=== PATIENT | male | born 1950 | race Asian ===

== ENCOUNTER 2018-10-30 18:32 | Inpatient (IN) | payer MEDICARE ==
[2018-10-30 19:24] LABS: % EOSINOPHILS 3.8 % (0.0-5.0); % LYMPHOCYTES 13.6 % (20.0-50.0); % MONOCYTES 10.4 % (2.0-10.0); % NEUTROPHILS 72.2 % (40.0-80.0); EOSINOPHILE ABSOLUTE 0.2 Th/cmm (0.1-0.4); HEMATOCRIT 42.5 % (41.0-60); HEMOGLOBIN 13.8 gm/dL (12-16); LYMPHOCYTE ABSOLUTE 0.8 Th/cmm (1.5-3.0); MEAN CELL VOLUME 92.6 fl (80-99); MEAN CORPUSCULAR HGB CONC 32.4 pg (28.0-36.0); MONOCYTE ABSOLUTE 0.6 Th/cmm (0.3-1.0); NEUTROPHILE ABSOLUTE 4.4 Th/cmm (1.8-8.0); PLATELET COUNT 252 Th/cmm (150-400); RED BLOOD COUNT 4.59 Mil/cmm (3.80-5.80); RED CELL DISTRIBUTION WIDTH 12.2 % (11.5-20.0)
[2018-10-30 19:34] LABS: INR 1.02 (0.5-1.4)
[2018-10-30 19:55] LABS: ALB/GLOB RATIO 1.4 (1.0-1.8); ALBUMIN 3.8 gm/dL (4.2-5.5); ALKALINE PHOSPHATASE 62 U/L (34-104); ANION GAP 12.7 (7.0-16.0); BILIRUBIN,TOTAL 0.6 mg/dL (0.3-1.0); BUN - UREA NITROGEN 14 mg/dL (7-25); CALCIUM SERUM 8.9 mg/dL (8.6-10.3); CARBON DIOXIDE 24.9 mEq/L (21.0-31.0); CHLORIDE 101 mEq/L (98-107); CREATININE - SERUM 0.8 mg/dL (0.7-1.3); GFR AFRICAN-AMERICAN > 60.0 ml/min (>90); GFR NON AFRICAN-AMERICAN > 60.0 ml/min; GLUCOSE 218 mg/dL (70-105); POTASSIUM SERUM 3.6 mEq/L (3.5-5.1); SGOT 27 U/L (13-39); SGPT/ALT 25 U/L (7-52); SODIUM SERUM 135 mEq/L (136-145); TOTAL PROTEIN,SERUM 6.5 gm/dL (6.0-8.3)
--- NOTE | 2018-10-30 23:40 | ED Physician Chart ---
ED Chief Complaint/HPI - Patient Information Date Seen:: 10/30/18 Time Seen:: 18:50 Chief Complaint:: weakness History of Present Illness:: 68 yrold male from [facility] [place] with hx of stoke last september with improved residuals who was bib family for weakness and depression with hx of slash lt volar wrist pt denies weakness or numbness no slurring of speech no dysphagia Allergies:: Allergies Allergy/AdvReac Type Severity Reaction Status Date / Time No Known Allergies Allergy Verified 10/30/18 18:42 Vitals:: Vital Signs - 8 hr 10/30/18 10/30/18 18:42 19:15 Temp 97.8 F 98.7 F HR 82 75 RR 16 16 BP 144/81 121/70 O2 Sat % 96 97 ED Review of Systems - Review of Systems General/Constitutional: No fever Skin: Other (has stitches volar lt wrist has 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) Head: No headache ENT: No earache Neck: No neck pain Cardio Vascular: No chest pain Pulmonary: No SOB GI: No vomiting G/U: No dysuria Psychiatric: Depression Hematopoietic: Bruising Allergic/Immuno: No urticaria Neurological: No syncope ED Past Medical History - Past Medical History Past Medical History: HTN, CVA/TIA Family Medical History - Family Member Father History Unknown: Yes Living Status: ED Physical Exam - Physical Examination General/Constitutional: Well-developed, well-nourished Head: Atraumatic Eyes: Lids, conjuctiva normal Other Skin comments:: lt wrist stiches in place with dry blood and rt hand digit amputations deformity ENMT: External ears, nose nl Neck: Nontender Respiratory: Nl effort/Exclusion Cardio Vascular: RRR GI: No tenderness/rebounding/guarding Extremities: No tenderness or effusion Neuro/Psych: Alert/oriented Misc: Normal back ED Labs/Radiology/EKG Results - Lab Results Results: Laboratory Tests 10/30/18 10/30/18 10/30/18 19:02 19:15 19:15 WBC 6.0 RBC 4.59 Hgb 13.8 Hct 42.5 MCV 92.6 MCH 30.0 MCHC Differential 32.4 RDW 12.2 Plt Count 252 MPV 6.8 Neutrophils % 72.2 Lymphocytes % 13.6 L Monocytes % 10.4 H Eosinophils % 3.8 Basophils % 0.0 PT INR PTT (Actin FS) Sodium 135 L Potassium 3.6 Chloride 101 Carbon Dioxide 24.9 Anion Gap 12.7 BUN 14 Creatinine 0.8 Est GFR ( Amer) > 60.0 Est GFR (Non-Af Amer) > 60.0 BUN/Creatinine Ratio 17.5 Glucose 218 H POC Glucose 203 H Calcium 8.9 Total Bilirubin 0.6 AST 27 ALT 25 Alkaline Phosphatase 62 Troponin I Total Protein 6.5 Albumin 3.8 L Globulin 2.7 Albumin/Globulin Ratio 1.4 10/30/18 10/30/18 19:15 19:15 WBC RBC Hgb Hct MCV MCH MCHC Differential RDW Plt Count MPV Neutrophils % Lymphocytes % Monocytes % Eosinophils % Basophils % PT 10.6 INR 1.02 PTT (Actin FS) 28.7 Sodium Potassium Chloride Carbon Dioxide Anion Gap BUN Creatinine Est GFR ( Amer) Est GFR (Non-Af Amer) BUN/Creatinine Ratio Glucose POC Glucose Calcium Total Bilirubin AST ALT Alkaline Phosphatase Troponin I 0.01 Total Protein Albumin Globulin Albumin/Globulin Ratio ED Assessment - Assessment General Assessment: weakness hx of recent cva ED Septic Shock - . Is Septic Shock (SBP<90, OR Lactate>4 mmol\L) present?: No - <6hrs of presentation: Vital Signs: Vital Signs - 8 hr 10/30/18 10/30/18 18:42 19:15 Temp 97.8 F 98.7 F HR 82 75 RR 16 16 BP 144/81 121/70 O2 Sat % 96 97 ED Reassessment (Disposition) - Reassessment Reassessment:: weakness old cva neuro stable - Diagnosis Diagnosis:: as above - Patient Disposition Discharge/Transfer:: Acute Care w/in this hosp Admitted to:: Med/Surg Condition at Disposition:: Stable
[2018-10-31] MEDS ORDERED: INSULIN LISPRO 100 UNIT/ML VIAL SUBQ SCH (07:30)
[2018-10-31 07:35] LABS: % BASOPHILS 0.1 % (0.0-2.0); % EOSINOPHILS 3.9 % (0.0-5.0); % LYMPHOCYTES 18.4 % (20.0-50.0); % MONOCYTES 12.4 % (2.0-10.0); % NEUTROPHILS 65.2 % (40.0-80.0); EOSINOPHILE ABSOLUTE 0.3 Th/cmm (0.1-0.4); HEMATOCRIT 45.5 % (41.0-60); LYMPHOCYTE ABSOLUTE 1.4 Th/cmm (1.5-3.0); MEAN CELL VOLUME 91.2 fl (80-99); MEAN CORPUSCULAR HEMOGLOBIN 30.1 pg (27.0-31.0); MONOCYTE ABSOLUTE 0.9 Th/cmm (0.3-1.0); PLATELET COUNT 253 Th/cmm (150-400); RED BLOOD COUNT 4.99 Mil/cmm (3.80-5.80); RED CELL DISTRIBUTION WIDTH 12.3 % (11.5-20.0); WHITE BLOOD COUNT 7.6 Th/cmm (4.8-10.8)
[2018-10-31 07:36] LABS: URINE SOURCE CLEAN C
[2018-10-31 07:44] LABS: URINE BILIRUBIN NEGATIVE (NEGATIVE); URINE BLOOD NEGATIVE (NEGATIVE); URINE GLUCOSE (UA) 100 mg/dL (NEGATIVE); URINE KETONE NEGATIVE (NEGATIVE); URINE LEUKOCYTE ESTERASE NEGATIVE (NEGATIVE); URINE NITRATE NEGATIVE (NEGATIVE); URINE PH 7.5 (4.6 - 8.0); URINE PROTEIN NEGATIVE (NEGATIVE); URINE UROBILINOGEN 0.2 E.U./dL (0.2 - 1.0)
[2018-10-31 07:58] LABS: ALB/GLOB RATIO 1.4 (1.0-1.8); ALBUMIN 4.1 gm/dL (4.2-5.5); ALKALINE PHOSPHATASE 77 U/L (34-104); ANION GAP 10.3 (7.0-16.0); BILIRUBIN,TOTAL 0.7 mg/dL (0.3-1.0); BUN - UREA NITROGEN 11 mg/dL (7-25); CALCIUM SERUM 9.2 mg/dL (8.6-10.3); CHLORIDE 101 mEq/L (98-107); CREATININE - SERUM 0.6 mg/dL (0.7-1.3); GFR AFRICAN-AMERICAN > 60.0 ml/min (>90); GFR NON AFRICAN-AMERICAN > 60.0 ml/min; GLUCOSE 149 mg/dL (70-105); POTASSIUM SERUM 3.3 mEq/L (3.5-5.1); SGOT 26 U/L (13-39); SGPT/ALT 25 U/L (7-52); SODIUM SERUM 133 mEq/L (136-145); TOTAL PROTEIN,SERUM 7.1 gm/dL (6.0-8.3)
[2018-10-31 07:59] LABS: URINE CLARITY CLEAR (CLEAR); URINE COLOR YELLOW; URINE MICROSCOPIC INDICATED? YES
[2018-10-31 08:00] LABS: URINE BACTERIA NONE SEEN /hpf (NONE SEEN); URINE EPITHELIAL CELLS RARE /lpf (FEW); URINE RBC 0-2 /hpf (0-5); URINE WBC 0-2 /hpf (0-5)
--- NOTE | 2018-10-31 09:17 | Diagnostic Imaging Report ---
CT scan of the brain without intravenous contrast HISTORY: Stroke, CVA Total DLP equals 724 CTDI equals 42.1 Axial sections were obtained from the base of the skull to the vertex. There is a normal ventricular system size for age. Focal hypodensity is noted within the right temporal parietal region with a degree of volume loss. Findings consistent with changes of an old infarct. Additional hypodense foci noted within the basal ganglia regions bilaterally consistent with old infarcts. Generalized hypodensity is seen throughout the supratentorial white matter regions without mass effect. The findings may be associated with chronic small vessel ischemic disease. No acute intracerebral hemorrhage. No mass effect or shift of midline structures. No extra-axial masses or abnormal fluid collections. IMPRESSION: 1. Findings consistent with multifocal old infarcts. The largest involves the right temporal parietal region. 2. No acute intracerebral hemorrhage 3. Supratentorial white matter changes. The findings may be associated with chronic small vessel ischemic disease
--- NOTE | 2018-10-31 09:40 | History & Physical ---
ADMIT DATE: 10/31/2018 CHIEF COMPLAINT: Generalized weakness, altered mental status, recent CVA, depression with suicidal ideation. HISTORY OF PRESENT ILLNESS: The patient is a pleasant 68-year-old [place] gentleman who while in the [facility] suffered CVA and was hospitalized around mid August. Medical records show a CT scan done with the following results: 1. Acute to subacute infarct in the right parietotemporal lobe extending to the right subinsular region (right MCA territory) with perilesional edema and mass effect. 2. Chronic lacunar infarcts both basal ganglia and right storey radiata. 3. Focal malacic changes. 4. Bilateral periventricular and subcortical white matter ischemic changes. The patient apparently came back 3 days ago and was brought into the ER given persistent lethargy, weakness/tiredness, depression. Family also was concerned to find a laceration on his left wrist pointing to possible suicidal ideation. Pertinent findings on admission included a CT of the brain showing old right temporoparietal infarct, right frontal infarct with no bleed, shift or edema. On further questioning, the patient states that he was taken to the hospital for the stroke. He felt a generalized weakness and he felt somewhat altered. He also did have left visual defect that has gradually gotten better. The patient has been admitted to the tele avery for management and care. PAST MEDICAL HISTORY: As noted above, also history of BPH. PAST SURGICAL HISTORY: None. FAMILY HISTORY: Noncontributory to this admission. SOCIAL HISTORY: He smokes about a pack a day and has been doing that since his early teenage years. Denies any chronic ETOH. The patient is currently retired. ALLERGIES: NKDA. OUTPATIENT MEDICATIONS: Amlodipine 10 every day, Augmentin 5-125 b.i.d., aspirin 81 every day, atorvastatin 80 every day, Plavix 75 every day, is on glipizide unknown strength, metformin 500 mg b.i.d., Flomax 0.4 at bedtime. REVIEW OF SYSTEMS: CONSTITUTIONAL: Generalized tiredness with sleepiness and generalized depression. He states that his appetite has not gone down and has not had any weight loss. He denies any fever or chills. HEAD AND NECK: Left eye visual defect, which has gradually gotten better since his stroke. Denies any headaches. CARDIAC: No chest pain or palpitations. No orthopnea, dyspnea on exertion noted. PULMONARY: Denies any shortness of breath, any cough, any phlegm production. GASTROINTESTINAL: No abdominal pain, no diarrhea, constipation, nausea, vomiting. GENITOURINARY: No bladder habit changes except for polyuria secondary to his BPH. NEUROLOGIC: Please refer to the HPI. The patient denies any ataxia or discoordination upon ambulation. He denies any focal findings. PHYSICAL EXAMINATION: VITAL SIGNS: Temperature 97.8, pulse 83, respirations 16, BP 122/80, satting 99% on room air. GENERAL: Well-developed, well-nourished male who appears to be in no distress and is nontoxic appearing. HEAD AND NECK: Normocephalic, atraumatic. His left pupil is slightly sluggish. NECK: There is no JVD or LAD. Oropharynx is moist and clear. CARDIAC: Regular rate and rhythm without any murmurs. LUNGS: Clear to auscultation bilaterally. ABDOMEN: Soft, supple, nontender, nondistended, normoactive bowel sounds. EXTREMITIES: In lower extremities, he has no pedal edema. NEUROLOGIC: He is a right-handed male with currently equal force and strength in all 4 extremities. Cranial nerves 2-12 appear to be within normal limits. Sensation is within normal limits. Gait and balance were not able to be tested at this time. LABORATORY DATA: CBC was essentially within normal limits. INR 1.02. Sodium 135 and glucose 218. Otherwise, Chem-7 was within normal limits. LFTs were within normal limits. UA was positive for glucose, otherwise, negative. DIAGNOSTICS: CT of the brain, please refer to the HPI. EKG, normal sinus rhythm at rate of 81. No noticeable ST elevations or depressions. ASSESSMENT: 1. Altered mental status with generalized weakness in light of a recent stroke concerning for recurrent stroke versus transient ischemic attack. 2. Recent right MCA CVA. 3. Right temporal infarct - old versus acute. 4. Acute depression with SI. 5. History of diabetes. 6. Essential hypertension. 7. History of diabetes. 8. History of benign prostatic hypertrophy. PLAN: The patient has been admitted to the tele avery where he has been placed on aspirin and will be kept on Plavix as scheduled. His statin will also be continued and he will undergo neuro workup including a 2D echo and a carotid ultrasound. I will ask for a PT eval to be done as well to further assess his balance and gait. Given his recent depression, I will also ask for a psych consult for further management and care. Psychiatry will also be asked for further management and care. Patient has a 1:1 sitter. JOB# [id number] MTDD
[2018-10-31] MEDS ORDERED: GLUCAGON HCl 1 MG KIT IM PRN (10:00)
[2018-10-31] MEDS ORDERED: Dextrose 50% 50 mL Abboject IVP PRN (10:00)
[2018-10-31] MEDS: Amoxicillin/Clavulanate 500/125 Tab PO SCH ×2 (10:36→17:33)
[2018-10-31] MEDS: Aspirin 81mg Chewable Tab PO SCH (10:36)
--- NOTE | 2018-10-31 11:31 | Diagnostic Imaging Report ---
Bilateral carotid Doppler ultrasound exam HISTORY: Stroke, CVA Sonographic sector images were obtained to the carotid bifurcation regions bilaterally. Associated Doppler data was obtained. The exam of the right side demonstrates mild generalized intimal thickening throughout the bifurcation region. Mild focal plaque is seen in the distal carotid bulb region and proximal internal carotid artery. No significant narrowing or stenosis. Antegrade vertebral artery flow. Velocities and flow ratios are normal (ICC/CCA equals 1.1). The exam of the left side demonstrates mild generalized intimal thickening. Mild multifocal plaque noted in the common carotid and carotid bulb regions. No significant narrowing or stenosis. Antegrade vertebral artery flow. Velocities and flow ratios are normal (ICC/CCA equals 1.3). IMPRESSION: 1. Mild bilateral atherosclerotic changes that do not appear to be hemodynamically significant.
[2018-10-31] MEDS: INSULIN LISPRO SLIDING SCALE 100 UNITS/ML UNIT SUBQ SCH ×3 (11:55→21:34)
[2018-10-31] MEDS ORDERED: Potassium Chloride 20 mEq ER Tab PO ONE (20:03)
[2018-11-01 04:34] LABS: % BASOPHILS 0.4 % (0.0-2.0); % EOSINOPHILS 5.7 % (0.0-5.0); % LYMPHOCYTES 21.5 % (20.0-50.0); % MONOCYTES 11.7 % (2.0-10.0); % NEUTROPHILS 60.7 % (40.0-80.0); EOSINOPHILE ABSOLUTE 0.4 Th/cmm (0.1-0.4); HEMATOCRIT 45.5 % (41.0-60); HEMOGLOBIN 15.1 gm/dL (12-16); LYMPHOCYTE ABSOLUTE 1.7 Th/cmm (1.5-3.0); MEAN CORPUSCULAR HEMOGLOBIN 30.1 pg (27.0-31.0); MEAN CORPUSCULAR HGB CONC 33.1 pg (28.0-36.0); MONOCYTE ABSOLUTE 0.9 Th/cmm (0.3-1.0); NEUTROPHILE ABSOLUTE 4.8 Th/cmm (1.8-8.0); PLATELET COUNT 251 Th/cmm (150-400); RED CELL DISTRIBUTION WIDTH 12.2 % (11.5-20.0); WHITE BLOOD COUNT 7.8 Th/cmm (4.8-10.8)
[2018-11-01 05:11] LABS: ANION GAP 12.5 (7.0-16.0); BUN - UREA NITROGEN 17 mg/dL (7-25); CALCIUM SERUM 9.5 mg/dL (8.6-10.3); CARBON DIOXIDE 25.6 mEq/L (21.0-31.0); CHLORIDE 105 mEq/L (98-107); CHOLESTEROL 77 mg/dL (<200); CREATININE - SERUM 1.1 mg/dL (0.7-1.3); GFR AFRICAN-AMERICAN > 60.0 ml/min (>90); GFR NON AFRICAN-AMERICAN > 60.0 ml/min; GLUCOSE 216 mg/dL (70-105); HDL -HIGH DENSITY LIPOPROTEIN 30 mg/dL (23-92); POTASSIUM SERUM 4.1 mEq/L (3.5-5.1); SODIUM SERUM 139 mEq/L (136-145); TRIGLYCERIDES 91 mg/dL (<150)
[2018-11-01] MEDS: INSULIN LISPRO SLIDING SCALE 100 UNITS/ML UNIT SUBQ SCH ×4 (07:54→21:46)
[2018-11-01] MEDS: Amoxicillin/Clavulanate 500/125 Tab PO SCH ×2 (08:04→16:53)
[2018-11-01] MEDS: Aspirin 81mg Chewable Tab PO SCH (08:05)
[2018-11-01 08:06] LABS: A1C 9.6 % (4.8-5.6)
--- NOTE | 2018-11-01 10:18 | Internal Medicine Prog Note ---
Internal Medicine Subjective - Subjective Service Date: 11/01/18 (CURRENTLY GETTING MRI OF BRAIN. PER STAFF, PT APPEARS DEPRESSED AND AT TIMES C/O TIREDNESS.) Patient is:: awake Per staff patient has:: no adverse event (EATING WELL PER STAFF) Internal Medicine Objective - Results Result Diagrams: 11/01/18 04:15 11/01/18 04:15 Recent Labs: Laboratory Last Values WBC 7.8 Th/cmm (4.8-10.8) 11/01/18 04:15 RBC 5.00 Mil/cmm (3.80-5.80) 11/01/18 04:15 Hgb 15.1 gm/dL (12-16) 11/01/18 04:15 Hct 45.5 % (41.0-60) 11/01/18 04:15 MCV 91.0 fl (80-99) 11/01/18 04:15 MCH 30.1 pg (27.0-31.0) 11/01/18 04:15 MCHC Differential 33.1 pg (28.0-36.0) 11/01/18 04:15 RDW 12.2 % (11.5-20.0) 11/01/18 04:15 Plt Count 251 Th/cmm (150-400) 11/01/18 04:15 MPV 7.4 fl 11/01/18 04:15 Neutrophils % 60.7 % (40.0-80.0) 11/01/18 04:15 Lymphocytes % 21.5 % (20.0-50.0) 11/01/18 04:15 Monocytes % 11.7 % (2.0-10.0) H 11/01/18 04:15 Eosinophils % 5.7 % (0.0-5.0) H 11/01/18 04:15 Basophils % 0.4 % (0.0-2.0) 11/01/18 04:15 PT 10.6 SECONDS (9.5-11.5) 10/30/18 19:15 INR 1.02 (0.5-1.4) 10/30/18 19:15 PTT (Actin FS) 28.7 SECONDS (26.0-38.0) 10/30/18 19:15 Sodium 139 mEq/L (136-145) 11/01/18 04:15 Potassium 4.1 mEq/L (3.5-5.1) 11/01/18 04:15 Chloride 105 mEq/L (98-107) 11/01/18 04:15 Carbon Dioxide 25.6 mEq/L (21.0-31.0) 11/01/18 04:15 Anion Gap 12.5 (7.0-16.0) 11/01/18 04:15 BUN 17 mg/dL (7-25) 11/01/18 04:15 Creatinine 1.1 mg/dL (0.7-1.3) 11/01/18 04:15 Est GFR ( Amer) > 60.0 ml/min (>90) 11/01/18 04:15 Est GFR (Non-Af Amer) > 60.0 ml/min 11/01/18 04:15 BUN/Creatinine Ratio 15.5 11/01/18 04:15 Glucose 216 mg/dL (70-105) H 11/01/18 04:15 POC Glucose 160 MG/DL (70 - 105) H 11/01/18 06:28 Calcium 9.5 mg/dL (8.6-10.3) 11/01/18 04:15 Total Bilirubin 0.7 mg/dL (0.3-1.0) 10/31/18 07:00 AST 26 U/L (13-39) 10/31/18 07:00 ALT 25 U/L (7-52) 10/31/18 07:00 Alkaline Phosphatase 77 U/L (34-104) 10/31/18 07:00 Troponin I 0.05 ng/mL (0.01-0.05) 10/31/18 07:00 Total Protein 7.1 gm/dL (6.0-8.3) 10/31/18 07:00 Albumin 4.1 gm/dL (4.2-5.5) L 10/31/18 07:00 Globulin 3.0 gm/dL 10/31/18 07:00 Albumin/Globulin Ratio 1.4 (1.0-1.8) 10/31/18 07:00 Prealbumin 21 mg/dL (10-36) 10/31/18 07:00 Triglycerides 91 mg/dL (<150) 11/01/18 04:15 Cholesterol 77 mg/dL (<200) 11/01/18 04:15 LDL Cholesterol Direct 41 mg/dL (75-193) L 11/01/18 04:15 HDL Cholesterol 30 mg/dL (23-92) 11/01/18 04:15 Urine Source CLEAN C 10/31/18 01:20 Urine Color YELLOW 10/31/18 01:20 Urine Clarity CLEAR (CLEAR) 10/31/18 01:20 Urine pH 7.5 (4.6 - 8.0) 10/31/18 01:20 Ur Specific [place] 1.010 (1.005-1.030) 10/31/18 01:20 Urine Protein NEGATIVE mg/dL (NEGATIVE) 10/31/18 01:20 Urine Glucose (UA) 100 mg/dL (NEGATIVE) H 10/31/18 01:20 Urine Ketones NEGATIVE mg/dL (NEGATIVE) 10/31/18 01:20 Urine Blood NEGATIVE (NEGATIVE) 10/31/18 01:20 Urine Nitrate NEGATIVE (NEGATIVE) 10/31/18 01:20 Urine Bilirubin NEGATIVE (NEGATIVE) 10/31/18 01:20 Urine Urobilinogen 0.2 E.U./dL (0.2 - 1.0) 10/31/18 01:20 Ur Leukocyte Esterase NEGATIVE (NEGATIVE) 10/31/18 01:20 Urine RBC 0-2 /hpf (0-5) H 10/31/18 01:20 Urine WBC 0-2 /hpf (0-5) 10/31/18 01:20 Ur Epithelial Cells RARE /lpf (FEW) 10/31/18 01:20 Urine Bacteria NONE SEEN /hpf (NONE SEEN) 10/31/18 01:20 - Physical Exam Vitals and I&O: Vital Signs Temp 98.6 F 11/01/18 08:00 Pulse 60 11/01/18 08:04 Resp 18 11/01/18 08:00 BP 128/68 11/01/18 08:04 Pulse Ox 97 11/01/18 08:00 Intake & Output 10/31/18 11/01/18 11/01/18 18:59 06:59 18:59 Intake Total 1250 Balance 1250 Weight (lbs) 77.111 kg Intake: Oral 1250 Other: # Voids 3 Stool Characteristics Soft Soft Soft Weight Source Bedscale Active Medications: Current Medications Amlodipine Besylate (Norvasc) 10 mg PO DAILY [facility] Stop: 12/30/18 04:14 Last Admin: 11/01/18 08:04 Dose: 10 mg Amoxicillin/Clavulanate Potassium (Augmentin 500-125mg) 1 tab PO BID [facility] Stop: 12/30/18 09:29 Last Admin: 11/01/18 08:04 Dose: 1 tab Aspirin (Aspirin Chewable) 81 mg PO DAILY [facility] Stop: 12/30/18 08:59 Last Admin: 11/01/18 08:05 Dose: 81 mg Atorvastatin Calcium (Lipitor) 80 mg PO DAILY [facility]; Protocol Stop: 12/30/18 09:29 Last Admin: 11/01/18 08:04 Dose: 80 mg Clopidogrel Bisulfate (Plavix) 75 mg PO DAILY [facility] Stop: 12/30/18 09:29 Last Admin: 11/01/18 08:04 Dose: 75 mg Dextrose (D50w) 50 ml IVP PRN PRN PRN Reason: BS Below 70 & not tolerate po Stop: 12/30/18 09:59 Dextrose (Glutose 40%) 18.75 gm PO PRN PRN PRN Reason: BS Below 70 & tolerate po Stop: 12/30/18 09:59 Glipizide (Glucotrol) 2.5 mg PO BID [facility] Stop: 12/30/18 08:59 Last Admin: 11/01/18 08:05 Dose: 2.5 mg Glucagon (Glucagen) 1 mg IM PRN PRN PRN Reason: BS Below 70&dextrose ineffecti Stop: 12/30/18 09:59 Insulin Human Lispro (Humalog Insulin Sliding Scale) 0 units SUBQ ACHS [facility]; Protocol Stop: 12/30/18 11:29 Last Admin: 11/01/18 07:54 Dose: 2 units Metformin HCl (Glucophage) 500 mg PO BID [facility] Stop: 12/30/18 09:29 Last Admin: 11/01/18 08:05 Dose: 500 mg Mirtazapine (Remeron) 30 mg PO [facility]; Protocol Stop: 12/30/18 20:59 Last Admin: 10/31/18 21:35 Dose: 30 mg Tamsulosin HCl (Flomax) 0.4 mg PO [facility] Stop: 12/30/18 20:59 Last Admin: 10/31/18 21:34 Dose: 0.4 mg Internal Medicine Assmt/Plan - Assessment Assessment: AMS-R/O CVA VS TIA GIVEN RECENT HX OF CVA RECENT CVA-RIGHT MCA TERRITORY DEPRESSION WITH SI POST CVA DEPRESSION ESSENTIAL HYPERTENSION HISTORY OF DM-2 HISTORY OF BPH - Plan Plan: CONT WITH CURRENT TELE SUPPORTIVE CARE AND MGT AWAIT MRI OF BRAIN (BEING DONE NOW) CONT WITH ECASA/PLAVIX/STATIN CONT WITH OTHER MEDS SCHEDULED NEURO/PSYCH EVAL CONT WITH PT TOLERATED DISPO-GS EVAL FOR POSSIBLE ADMISSION VS SNF PLACEMENT FOR PT/REHAB PER FAMILY'S WISHES Nutritional Asmnt/Malnutr-PDOC - Dietary Evaluation Malnutrition Findings (Please click <Entered> for more info): Nutritional Asmnt/Malnutrition Start: 10/31/18 13: 11 Text: Status: Active Freq: Protocol: Document 10/31/18 13:11 LAURIE (Rec: 10/31/18 13:16 LAURIE [email or web address]) Nutritional Asmnt/Malnutrition Patient General Information Nutritional Screening High Risk Diagnosis R/O CVA, Altered Mental Status , Depression with Suicidal Ideations Pertinent Medical Hx/Surgical Hx CVA/TIA (last September), HTN, BPH, DM Subjective Information IA, HR, Consult: DM Pt is a 68-year-old male admitted on 10/30 bib family for weakness and depression. Pt ate 50% of breakfast this morning per family report. Pt was tired and did not eat lunch yet, but was able to speak with me concerning his usual diet at home and his DM. Pt states he has had DM for 5 years now, does not follow a particular diet but avoids juices and sodas. Pt was interested in bedside education and educational materials for DM management. Pt states he does check his BG levels at home and it is typically between 110-115. Recommendation of adding CCHO to Pt diet order for optimal glucose control. HT: 54 WT: 170 LB (77.27 kg) ABW: 140 LB (63.64 kg) BMI: 29.18 (Overweight) GI: Flat, non-tender, large BM: not Noted I/O: Not Noted Skin: Warm, moist, loose Wound: LT wrist stitches in place (from slash Lt volar wrist) Spencer: 17 Diet Order: Na 2gm Estimated Energy Needs: ( Geriatric, ABW) 5626-2166 kcals (25-30 kcals/ kg) 63-76g Pro (1.0-1.2 g/kg) 2501-7178 ml (25-30 ml/kg) Current Diet Order/ Nutrition Support Na 2gm Pertinent Medications Lipitor, Plavix, D50w (PRN), Glutose 40% (PRN), Glucotrol, Glucagen (PRN), INS-SS, Glucophage Pertinent Labs 10/31: Na 133, Potass 3.3, Glucose 149, Alb 4.1 POC glucose (last 24 hours): 169, 119 10/30: Glucose 218 Nutritional Hx/Data Height 1.63 m Height (Calculated Centimeters) 162.6 Current Weight (lbs) 77.111 kg Weight (Calculated Kilograms) 77.1 Weight (Calculated Grams) 98693.7 [place] Body Weight 130 LB (59.09kg) % [place] Body Weight 131 Body Mass Index (BMI) 29.2 Weight Status Overweight GI Symptoms Last BM Not noted Usual diet at home Avoids juices and sodas Skin Integrity/Comment: Skin: Warm, moist, loose Wound: LT wrist stitches in place (from slash Lt volar wrist) Spencer: 17 Estimated Nutritional Goals BEE in Kcals: Adj wt of IBW Calories/Kcals/Kg 25-30 Kcals Calculated 9918-3262 Protein: Adj wt of IBW Protein g/k.0-1.2 Protein Calculated 63-76 Fluid: ml 5870-2608 ml (25-30 ml/kg) Nutritional Problem 1. Problem Problem Impaired nutrient utilization Etiology r/t endocrine dysfunction Signs/Symptoms: aeb admitting glucose 218 and POC glucose (last 24 hours): 169, 119. Malnutrition Related to Morbid Obesity Malnutrition related to morbid obesity No Intervention/Recommendation Comments 1. Continue with Na 2gm diet as ordered. 2. Consider CCHO addition to diet order for further glucose control. 3. Continue antihyperglycemic medications for glucose control per MD order. 4. Provide bedside DM education and educational materials (completed). Expected Outcomes/Goals Expected Outcomes/Goals 1. PO intake to meet 75% of nutritional needs. 2. Monitor PO intake, wt, skin integrity, and nutrition related labs to trend WNL. 3. F/U as low risk in 7 days, 11/07
--- NOTE | 2018-11-01 12:18 | Diagnostic Imaging Report ---
MRI Brain without intravenous Contrast Indication: CVA Comparison: CT head performed on 10/30/2018 at [facility] Technique: Multiplanar T1, T2, FLAIR, GRE and diffusion weighted images of the brain were obtained without intravenous contrast.. Findings: Images of the brain obtained without contrast demonstrating evolving likely subacute to chronic infarcts involving the right temporal parietal occipital lobes. Punctate areas of increased signal on T1-weighted images may be due to laminar necrosis. There is diffuse white matter disease. Old bilateral small periventricular infarcts are noted. No mass effect or midline shift. Vascular flow voids are preserved. The bilateral cerebellopontine angles are patent. There is a mucous retention cyst versus polyp of the right maxillary sinus. IMPRESSION: Large evolving, likely subacute to chronic ischemic infarct involving the right temporal, parietal, and occipital regions. Punctate areas of increased gyral signal on T1-weighted images throughout these regions are likely related to laminar necrosis. Punctate microhemorrhages is less likely. Diffuse white matter disease which is nonspecific and may be due to chronic microvessel ischemia. Old bilateral lacunar periventricular infarcts are noted. No mass effect or midline shift Mucous retention cyst versus polyp of the right maxillary sinus.
--- NOTE | 2018-11-02 03:44 | Consultation ---
DATE OF CONSULTATION: 11/01/2018 NEUROLOGY CONSULT. HISTORY OF PRESENT ILLNESS: The patient is a 68-year-old. Had a stroke where he had weakness on the left side in the middle of August. The patient's CT scan had shown a right parietotemporal stroke with some edema and mass effect. The patient was admitted with complaints of altered mentation and also very depressed and question of possible suicidal ideation. Other than the patient's history of diabetes, ____ hypertension, benign prostate hypertrophy. MEDICATIONS: Amlodipine, aspirin, atorvastatin, Plavix, glipizide, metformin, Remeron. REVIEW OF SYSTEMS: Twelve point negative except for above. PHYSICAL EXAMINATION: VITAL SIGNS: Temperature 97.9, blood pressure 120/68, pulse is 65. NECK: Supple. No neck bruits. HEART: Normal heart sounds. LUNGS: Clear. NEUROLOGIC: The patient is awake, alert. The patient will answer questions. The patient resting over the left wrist. He knew what day, what month. There is some field defect on the left. Not much facial weakness. MOTOR: He will lift the left arm with some drift. Leg, he lifts ____ very mild weakness. Reflexes 1 to 2+. INVESTIGATIONS: MRI brain shows large evolving subacute to chronic infarction in the right temporoparietal occipital region with some laminar necrosis with punctate microhemorrhages. Carotid Doppler, no significant stenosis. Mild arthrosclerotic disease. ASSESSMENT: 1. Stroke, right middle cerebral artery. 2. Diabetes. 3. Hypertension. 4. Depression. PLAN: Continue present treatment. The patient's psychiatric evaluation. Further workup. The patient will continue with physical therapy, rehabilitation and OT. [facility]# [id number]
[2018-11-02 05:28] LABS: % BASOPHILS 0.8 % (0.0-2.0); % LYMPHOCYTES 20.5 % (20.0-50.0); % NEUTROPHILS 62.7 % (40.0-80.0); BASOPHILE ABSOLUTE 0.1 Th/cumm (0-0.2); EOSINOPHILE ABSOLUTE 0.5 Th/cmm (0.1-0.4); HEMATOCRIT 44.3 % (41.0-60); HEMOGLOBIN 14.8 gm/dL (12-16); LYMPHOCYTE ABSOLUTE 1.7 Th/cmm (1.5-3.0); MEAN CELL VOLUME 91.6 fl (80-99); MEAN CORPUSCULAR HEMOGLOBIN 30.6 pg (27.0-31.0); MEAN CORPUSCULAR HGB CONC 33.4 pg (28.0-36.0); MONOCYTE ABSOLUTE 0.8 Th/cmm (0.3-1.0); NEUTROPHILE ABSOLUTE 5.1 Th/cmm (1.8-8.0); PLATELET COUNT 247 Th/cmm (150-400); RED BLOOD COUNT 4.84 Mil/cmm (3.80-5.80); RED CELL DISTRIBUTION WIDTH 12.3 % (11.5-20.0); WHITE BLOOD COUNT 8.2 Th/cmm (4.8-10.8)
[2018-11-02 05:38] LABS: ANION GAP 11.3 (7.0-16.0); BUN - UREA NITROGEN 21 mg/dL (7-25); CALCIUM SERUM 8.8 mg/dL (8.6-10.3); CARBON DIOXIDE 23.3 mEq/L (21.0-31.0); CHLORIDE 104 mEq/L (98-107); CREATININE - SERUM 0.7 mg/dL (0.7-1.3); GFR AFRICAN-AMERICAN > 60.0 ml/min (>90); GFR NON AFRICAN-AMERICAN > 60.0 ml/min; GLUCOSE 220 mg/dL (70-105); POTASSIUM SERUM 3.6 mEq/L (3.5-5.1); SODIUM SERUM 135 mEq/L (136-145)
[2018-11-02] MEDS: INSULIN LISPRO SLIDING SCALE 100 UNITS/ML UNIT SUBQ SCH ×4 (08:59→20:21)
[2018-11-02] MEDS: Amoxicillin/Clavulanate 500/125 Tab PO SCH ×2 (09:01→17:44)
[2018-11-02] MEDS: Aspirin 81mg Chewable Tab PO SCH (09:02)
--- NOTE | 2018-11-02 10:17 | History & Physical ---
ADMIT DATE: 10/30/2018 PHYSICIAN REQUESTING CONSULTATION: Dr. Ifrah Young. REASON FOR CONSULTATION: Suicidal ideation and gesture to cut his wrist. HISTORY OF PRESENT ILLNESS: This patient is a 68-year-old [place]ian gentleman who is reported to have suffered CVA in [facility] and was hospitalized there for a week in August and the patient has been brought over here. The patient is reported to be back in here and brought to the Emergency Room for persistent lethargy, weakness, and depression. On the day of the hospitalization, the patient's family got concerned when they found a laceration on his left wrist was pointing towards the possible suicidal gesture. The patient is reporting that he fell down and it was a little scratch. The patient is operating on denial. Coping skills at this time are noted to be very poor. The patient is downplaying his problem with the sleep and appetite. The patient is cooperative, but has been able to give the information and is stating that he never had any psychiatric problems. PAST PSYCHIATRIC HISTORY: Details are not known. MEDICAL HISTORY: The patient is reported to have sustained CVA. The patient also has a history of BPH. SOCIAL HISTORY: The patient is single, states that he has 2 sons and a daughter and they are very supportive and he states that he has been living with a niece. 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 MENTAL STATUS EXAMINATION: The patient is a social drinker, but he states that alcohol is not a problem. CURRENT MEDICATIONS: Include patient is being treated for amlodipine. The patient is also on aspirin, atorvastatin, glipizide and metformin and Flomax. MENTAL STATUS EXAMINATION: The patient is a 68-year-old, looking his stated age, superficially cooperative. Eye contact is fair. Mood is noted to be depressed. Affect is constricted. The patient is operating on denial. The patient has laceration on the left side of the wrist Band-Aid. The patient is not homicidal. The patient denies auditory hallucinations. No delusions are noted at this time. The patient is alert and aware that he is in the hospital. Attention span and concentration are noted to be fair. DIAGNOSTIC IMPRESSION: Major depressive disorder, first episode and moderate. PLAN: To closely monitor the patient and once medically stabilized assess the need for the antidepressant medications. The patient is going to be requested to have a family session. Thank you, Dr. Young for allowing me to participate in the care of the patient. [facility]# [id number]
--- NOTE | 2018-11-02 21:39 | Internal Medicine Prog Note ---
Internal Medicine Subjective - Subjective Service Date: 11/02/18 (comfortable, sitting up in chair. D/W niece at bedside.) Patient is:: awake Per staff patient has:: no adverse event (EATING WELL PER STAFF), eating well Internal Medicine Objective - Results Result Diagrams: 11/02/18 05:00 11/02/18 05:00 Recent Labs: Laboratory Last Values WBC 8.2 Th/cmm (4.8-10.8) 11/02/18 05:00 RBC 4.84 Mil/cmm (3.80-5.80) 11/02/18 05:00 Hgb 14.8 gm/dL (12-16) 11/02/18 05:00 Hct 44.3 % (41.0-60) 11/02/18 05:00 MCV 91.6 fl (80-99) 11/02/18 05:00 MCH 30.6 pg (27.0-31.0) 11/02/18 05:00 MCHC Differential 33.4 pg (28.0-36.0) 11/02/18 05:00 RDW 12.3 % (11.5-20.0) 11/02/18 05:00 Plt Count 247 Th/cmm (150-400) 11/02/18 05:00 MPV 7.3 fl 11/02/18 05:00 Neutrophils % 62.7 % (40.0-80.0) 11/02/18 05:00 Lymphocytes % 20.5 % (20.0-50.0) 11/02/18 05:00 Monocytes % 10.0 % (2.0-10.0) 11/02/18 05:00 Eosinophils % 6.0 % (0.0-5.0) H 11/02/18 05:00 Basophils % 0.8 % (0.0-2.0) 11/02/18 05:00 PT 10.6 SECONDS (9.5-11.5) 10/30/18 19:15 INR 1.02 (0.5-1.4) 10/30/18 19:15 PTT (Actin FS) 28.7 SECONDS (26.0-38.0) 10/30/18 19:15 Sodium 135 mEq/L (136-145) L 11/02/18 05:00 Potassium 3.6 mEq/L (3.5-5.1) 11/02/18 05:00 Chloride 104 mEq/L (98-107) 11/02/18 05:00 Carbon Dioxide 23.3 mEq/L (21.0-31.0) 11/02/18 05:00 Anion Gap 11.3 (7.0-16.0) 11/02/18 05:00 BUN 21 mg/dL (7-25) 11/02/18 05:00 Creatinine 0.7 mg/dL (0.7-1.3) 11/02/18 05:00 Est GFR ( Amer) > 60.0 ml/min (>90) 11/02/18 05:00 Est GFR (Non-Af Amer) > 60.0 ml/min 11/02/18 05:00 BUN/Creatinine Ratio 30.0 11/02/18 05:00 Glucose 220 mg/dL (70-105) H 11/02/18 05:00 POC Glucose 160 MG/DL (70 - 105) H 11/02/18 17:33 Calcium 8.8 mg/dL (8.6-10.3) 11/02/18 05:00 Magnesium 2.0 mg/dL (1.9-2.7) 11/02/18 05:00 Total Bilirubin 0.7 mg/dL (0.3-1.0) 10/31/18 07:00 AST 26 U/L (13-39) 10/31/18 07:00 ALT 25 U/L (7-52) 10/31/18 07:00 Alkaline Phosphatase 77 U/L (34-104) 10/31/18 07:00 Troponin I 0.05 ng/mL (0.01-0.05) 10/31/18 07:00 Total Protein 7.1 gm/dL (6.0-8.3) 10/31/18 07:00 Albumin 4.1 gm/dL (4.2-5.5) L 10/31/18 07:00 Globulin 3.0 gm/dL 10/31/18 07:00 Albumin/Globulin Ratio 1.4 (1.0-1.8) 10/31/18 07:00 Prealbumin 21 mg/dL (10-36) 10/31/18 07:00 Triglycerides 91 mg/dL (<150) 11/01/18 04:15 Cholesterol 77 mg/dL (<200) 11/01/18 04:15 LDL Cholesterol Direct 41 mg/dL (75-193) L 11/01/18 04:15 HDL Cholesterol 30 mg/dL (23-92) 11/01/18 04:15 TSH 0.59 uIU/ml (0.34-5.60) 11/01/18 04:15 Urine Source CLEAN C 10/31/18 01:20 Urine Color YELLOW 10/31/18 01:20 Urine Clarity CLEAR (CLEAR) 10/31/18 01:20 Urine pH 7.5 (4.6 - 8.0) 10/31/18 01:20 Ur Specific [place] 1.010 (1.005-1.030) 10/31/18 01:20 Urine Protein NEGATIVE mg/dL (NEGATIVE) 10/31/18 01:20 Urine Glucose (UA) 100 mg/dL (NEGATIVE) H 10/31/18 01:20 Urine Ketones NEGATIVE mg/dL (NEGATIVE) 10/31/18 01:20 Urine Blood NEGATIVE (NEGATIVE) 10/31/18 01:20 Urine Nitrate NEGATIVE (NEGATIVE) 10/31/18 01:20 Urine Bilirubin NEGATIVE (NEGATIVE) 10/31/18 01:20 Urine Urobilinogen 0.2 E.U./dL (0.2 - 1.0) 10/31/18 01:20 Ur Leukocyte Esterase NEGATIVE (NEGATIVE) 10/31/18 01:20 Urine RBC 0-2 /hpf (0-5) H 10/31/18 01:20 Urine WBC 0-2 /hpf (0-5) 10/31/18 01:20 Ur Epithelial Cells RARE /lpf (FEW) 10/31/18 01:20 Urine Bacteria NONE SEEN /hpf (NONE SEEN) 10/31/18 01:20 - Physical Exam Vitals and I&O: Vital Signs Temp 97.8 F 11/02/18 20:00 Pulse 67 11/02/18 20:00 Resp 18 11/02/18 20:00 BP 144/77 11/02/18 20:00 Pulse Ox 98 11/02/18 20:00 Intake & Output 11/02/18 11/02/18 11/03/18 06:59 18:59 06:59 Intake Total 1800 Output Total 2 Balance -2 1800 Weight (lbs) 77.111 kg 775.643 kg Intake: Oral 1800 Output: Stool 2 Other: # Voids 3 # Bowel Movements 0 Stool Characteristics Soft Soft Weight Source Bedscale Bedscale Active Medications: Current Medications Amlodipine Besylate (Norvasc) 10 mg PO DAILY [facility] Stop: 12/30/18 04:14 Last Admin: 11/02/18 09:09 Dose: Not Given Amoxicillin/Clavulanate Potassium (Augmentin 500-125mg) 1 tab PO BID [facility] Stop: 12/30/18 09:29 Last Admin: 11/02/18 17:44 Dose: 1 tab Aspirin (Aspirin Chewable) 81 mg PO DAILY [facility] Stop: 12/30/18 08:59 Last Admin: 11/02/18 09:02 Dose: 81 mg Atorvastatin Calcium (Lipitor) 80 mg PO DAILY [facility]; Protocol Stop: 12/30/18 09:29 Last Admin: 11/02/18 09:01 Dose: 80 mg Clopidogrel Bisulfate (Plavix) 75 mg PO DAILY [facility] Stop: 12/30/18 09:29 Last Admin: 11/02/18 09:01 Dose: 75 mg Dextrose (D50w) 50 ml IVP PRN PRN PRN Reason: BS Below 70 & not tolerate po Stop: 12/30/18 09:59 Dextrose (Glutose 40%) 18.75 gm PO PRN PRN PRN Reason: BS Below 70 & tolerate po Stop: 12/30/18 09:59 Ezetimibe (Zetia) 10 mg PO DAILY [facility] Stop: 01/01/19 08:59 Last Admin: 11/02/18 11:48 Dose: 10 mg Glipizide (Glucotrol) 2.5 mg PO BID [facility] Stop: 12/30/18 08:59 Last Admin: 11/02/18 17:44 Dose: 2.5 mg Glucagon (Glucagen) 1 mg IM PRN PRN PRN Reason: BS Below 70&dextrose ineffecti Stop: 12/30/18 09:59 Insulin Human Lispro (Humalog Insulin Sliding Scale) 0 units SUBQ ACHS [facility]; Protocol Stop: 12/30/18 11:29 Last Admin: 11/02/18 20:21 Dose: 4 units Metformin HCl (Glucophage) 500 mg PO BID [facility] Stop: 12/30/18 09:29 Last Admin: 11/02/18 17:44 Dose: 500 mg Tamsulosin HCl (Flomax) 0.4 mg PO HS [facility] Stop: 12/30/18 20:59 Last Admin: 11/02/18 20:20 Dose: 0.4 mg - Procedures Procedures: MRI BRAIN_ LARGE EVOLVING LIKELY SUBACUTE TO CHRONIC ISCHEMIC INFARCT INVOLVINGTHE RIGHT TEMPORAL, PARIETAL AND OCCIPITAL REGIONS. PUNCTATE AREAS OF INCREASED GYRAL SIGNAL LIKELY RELATED TO LAMINAR NECROSIS. DIFFUSE WMD. 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 Internal Medicine Assmt/Plan - Assessment Assessment: LARGE EVOLVING LIKELY SUBACUTE TO CHRONIC ISCHEMIC INFARCT INVOLVING THE RIGHT TEMPORAL, PARIETAL AND OCCIPITAL REGIONS. PUNCTATE AREAS OF INCREASED GYRAL SIGNAL LIKELY RELATED TO LAMINAR NECROSIS. DIFFUSE WMD/OLD BILATERAL LACUNAR PERIVENTRICULAR INFARCT. DEPRESSION WITH SI POST CVA DEPRESSION ESSENTIAL HYPERTENSION HISTORY OF DM-2 HISTORY OF BPH - Plan Plan: CONT WITH CURRENT TELE SUPPORTIVE CARE AND MGT CONT WITH ECASA/PLAVIX/STATIN CONT WITH OTHER MEDS SCHEDULED NEURO/PSYCH EVAL CONT WITH PT TOLERATED DISPO-GS EVAL FOR POSSIBLE ADMISSION VS SNF PLACEMENT FOR PT/REHAB PER FAMILY'S WISHES Nutritional Asmnt/Malnutr-PDOC - Dietary Evaluation Malnutrition Findings (Please click <Entered> for more info): Nutritional Asmnt/Malnutrition Start: 10/31/18 13: 11 Text: Status: Active Freq: Protocol: Document 10/31/18 13:11 LAURIE (Rec: 10/31/18 13:16 LAURIE [email or web address]) Nutritional Asmnt/Malnutrition Patient General Information Nutritional Screening High Risk Diagnosis R/O CVA, Altered Mental Status , Depression with Suicidal Ideations Pertinent Medical Hx/Surgical Hx CVA/TIA (last September), HTN, BPH, DM Subjective Information IA, HR, Consult: DM Pt is a 68-year-old male admitted on 10/30 bib family for weakness and depression. Pt ate 50% of breakfast this morning per family report. Pt was tired and did not eat lunch yet, but was able to speak with me concerning his usual diet at home and his DM. Pt states he has had DM for 5 years now, does not follow a particular diet but avoids juices and sodas. Pt was interested in bedside education and educational materials for DM management. Pt states he does check his BG levels at home and it is typically between 110-115. Recommendation of adding CCHO to Pt diet order for optimal glucose control. HT: 54 WT: 170 LB (77.27 kg) ABW: 140 LB (63.64 kg) BMI: 29.18 (Overweight) GI: Flat, non-tender, large BM: not Noted I/O: Not Noted Skin: Warm, moist, loose Wound: LT wrist stitches in place (from slash Lt volar wrist) Spencer: 17 Diet Order: Na 2gm Estimated Energy Needs: ( Geriatric, ABW) 8927-6432 kcals (25-30 kcals/ kg) 63-76g Pro (1.0-1.2 g/kg) 6823-4635 ml (25-30 ml/kg) Current Diet Order/ Nutrition Support Na 2gm Pertinent Medications Lipitor, Plavix, D50w (PRN), Glutose 40% (PRN), Glucotrol, Glucagen (PRN), INS-SS, Glucophage Pertinent Labs 10/31: Na 133, Potass 3.3, Glucose 149, Alb 4.1 POC glucose (last 24 hours): 169, 119 10/30: Glucose 218 Nutritional Hx/Data Height 1.63 m Height (Calculated Centimeters) 162.6 Current Weight (lbs) 77.111 kg Weight (Calculated Kilograms) 77.1 Weight (Calculated Grams) 08817.7 Hardy Body Weight 130 LB (59.09kg) % Hardy Body Weight 131 Body Mass Index (BMI) 29.2 Weight Status Overweight GI Symptoms Last BM Not noted Usual diet at home Avoids juices and sodas Skin Integrity/Comment: Skin: Warm, moist, loose Wound: LT wrist stitches in place (from slash Lt volar wrist) Spencer: 17 Estimated Nutritional Goals BEE in Kcals: Adj wt of IBW Calories/Kcals/Kg 25-30 Kcals Calculated 2889-4200 Protein: Adj wt of IBW Protein g/k.0-1.2 Protein Calculated 63-76 Fluid: ml 5155-2725 ml (25-30 ml/kg) Nutritional Problem 1. Problem Problem Impaired nutrient utilization Etiology r/t endocrine dysfunction Signs/Symptoms: aeb admitting glucose 218 and POC glucose (last 24 hours): 169, 119. Malnutrition Related to Morbid Obesity Malnutrition related to morbid obesity No Intervention/Recommendation Comments 1. Continue with Na 2gm diet as ordered. 2. Consider CCHO addition to diet order for further glucose control. 3. Continue antihyperglycemic medications for glucose control per MD order. 4. Provide bedside DM education and educational materials (completed). Expected Outcomes/Goals Expected Outcomes/Goals 1. PO intake to meet 75% of nutritional needs. 2. Monitor PO intake, wt, skin integrity, and nutrition related labs to trend WNL. 3. F/U as low risk in 7 days, 11/07
[2018-11-03] MEDS: INSULIN LISPRO SLIDING SCALE 100 UNITS/ML UNIT SUBQ SCH ×2 (06:32→12:09)
[2018-11-03] MEDS: Amoxicillin/Clavulanate 500/125 Tab PO SCH (08:33)
[2018-11-03] MEDS: Aspirin 81mg Chewable Tab PO SCH (08:33)
--- NOTE | 2018-11-03 11:08 | Progress Notes ---
DATE: 11/03/2018 SUBJECTIVE: Staff was spoken to. The patient is interviewed. Mood is noted to be irritable. Affect is constricted. The patient's insight and judgment are noted to be still impaired. Impulse control is noted to be limited. The patient is stating that there is no reason for him to be on antidepressant medication. Staff was spoken to. They have been mentioning that the patient has cut up deeply and that required stitches. The patient is stating that he has good support from his daughter and son and the patient is stating that he is not in need of any antidepressant medication. The patient is being closely monitored, provided with supportive psychotherapy. PLAN: To follow the patient up and the social service coordinator is going to be requested to arrange a family session. JOB# [id number]
--- NOTE | 2018-11-03 12:29 | Cardiology ---
10/31/2018 ECHOCARDIOGRAM REPORT The patient of Dr. Young. M-MODE ECHOCARDIOGRAM: Mitral valve, anterior leaflet of mitral valve shows normal excursion, EF velocity. Posterior leaflet of mitral valve shows normal excursion. Left ventricular posterior wall shows increased thickness, normal excursion. Interventricular septum shows increased thickness, normal excursion, hypertrophy of the left ventricle, ejection fraction 66%. Left atrium normal. Aortic root shows normal dimension, normal excursion of aortic leaflets. CONCLUSION: Left atrial enlargement, ejection fraction 66%. 2D ECHO: The patient's long axis view showed normal sized left ventricle with hypertrophy of the left ventricle. Left atrium normal. Aortic root shows normal dimension, normal excursion of aortic leaflets. Short axis view of mitral valve normal. Short axis view of aortic valve normal. Apical four chamber view showed normal sized left ventricle with hypertrophy of the left ventricle. Left atrium normal. Right ventricular cavity, right atrium normal, no pericardial effusion. CONCLUSION: Hypertrophy of the left ventricle, ejection fraction 66%. Doppler study shows mild mitral regurgitation, trace tricuspid regurgitation, right ventricular systolic pressure 37 mmHg. [facility]# [id number]
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
== END 2018-11-03 16:30 | DRG 65 ==
LOC: ER 18:32 → TELE 22:10 → MSI 10-31 14:41 → TELE 11-01 11:50
PROVIDERS: ADMIT Internal Medicine; ATTEND Internal Medicine
DX: I63.89 Other cerebral infarction (principal); R45.851 Suicidal ideations; I69.354 Hemiplegia and hemiparesis following cerebral infarction affecting left non-dominant side; F32.1 Major depressive disorder, single episode, moderate; I10 Essential (primary) hypertension; N40.0 Benign prostatic hyperplasia without lower urinary tract symptoms; F32.9 Major depressive disorder, single episode, unspecified; E11.9 Type 2 diabetes mellitus without complications; F01.50 Vascular dementia, unspecified severity, without behavioral disturbance, psychotic disturbance, mood disturbance, and anxiety
CPT/HCPCS: 36415-UA; 70450-TC; 80048-TC; 80053-TC; 80061-TC; 81001-TC; 82948-90; 83036-90; 83735-TC; 84134-90; 84439-90; 84443-TC; 84484-TC; 85025-TC; 85610-TC; 85730-TC; 93005; 93880-TC; 97530; X3904; Z7610; Z7610-TC